=== PATIENT | male | born 1970 | race Caucasian/White ===

== ENCOUNTER 2018-03-25 09:46 | Outpatient (CLI) | payer BC ==
--- NOTE | 2018-03-25 12:37 | MRI ---
MRI LUMBAR SPINE NONCONTRAST: INDICATIONS: Low back pain. Lumbago with sciatica of right side. FINDINGS: The lumbar spine vertebral body heights are maintained. There is no significant malalignment. The c onus medullaris is normal in morphology, terminating at the L1 level. There is lumbarization of the S1 segment. At the S1-S2 level, there is a lateralized right-sided osteophyte with mild effacement o f the ventral aspect of the right nerve root sleeve. L5-S1: Broad-based disk osteophyte effaces the ventral thecal sac without high-grade central canal o r foraminal stenosis. There is a right subarticular inferior disk extrusion with mild effacement of the traversing right S1 nerve root. L4-L5: There is a broad-based disk osteophyte with mild effacement of the ventral thecal sac. No hi gh-grade foraminal stenosis. L3-L4: No significant compromise of the central canal or neural foramina. L2-L3: No significant compromise of the central canal or neural foramina. L1-L2: No significant compromise of the central canal or neural foramina. Evaluation of the imaged retroperitoneum reveals no significant pathology. IMPRESSION: Degenerative changes of the lumbar spine, most pronounced inferiorly. There is an L5-S1 level disk e xtrusion within the right subarticular zone, which does efface the right S1 nerve root. Additional details are as described above. POS: NADINE
== END 2018-03-25 09:47 | disposition home or self-care (01) ==
LOC: BICMRI 09:46
PROVIDERS: ATTEND Nurse Practitioner Adult Health
DX: M54.41 Lumbago with sciatica, right side (principal); G89.29 Other chronic pain; M47.816 Spondylosis without myelopathy or radiculopathy, lumbar region; M51.27 Other intervertebral disc displacement, lumbosacral region
CPT/HCPCS: 72148